=== PATIENT | female | born 1975 | race Caucasian/White ===

== ENCOUNTER 2019-06-12 10:13 | Emergency (ER) | payer OTHER, MEDICAID ==
[~2019-06-12] VITALS: Ht 170.2 cm; Wt 90.7 kg
[2019-06-12 10:13] VITALS: BP_SYST 142
[2019-06-12 11:55] VITALS: BP_SYST 142
== END 2019-06-12 11:55 | disposition home or self-care (01) ==
LOC: SED 10:13
DX: J40 Bronchitis, not specified as acute or chronic (principal)
CPT/HCPCS: 71046-TC; 99283